=== PATIENT | female | born 1935 | race Caucasian/White ===

== ENCOUNTER 2022-09-04 06:06 | Day surgery (SDC) | payer MEDICARE ==
[2022-09-03 09:45] VITALS: BMI 21.7
[2022-09-04] MEDS ORDERED: PROPOFOL 0 ML ONE (06:50)
[2022-09-04] MEDS ORDERED: Lidocaine 1% PF 5 ML VIAL ONE (06:50)
[2022-09-04] MEDS ORDERED: PROPOFOL 20 ML ONE ×2 (08:06→08:37)
== END 2022-09-04 09:28 | disposition home or self-care (01) ==
LOC: CSHSDC 06:06
PROVIDERS: ATTEND Internal Medicine Gastroenterology
PROC: 0DB98ZX Excision of Duodenum, Via Natural or Artificial Opening Endoscopic, Diagnostic (ICD-10-PCS; principal; 2022-09-04)
PROC: 0DJD8ZZ Inspection of Lower Intestinal Tract, Via Natural or Artificial Opening Endoscopic (ICD-10-PCS; 2022-09-04)
DX: K31.7 Polyp of stomach and duodenum (principal); D50.9 Iron deficiency anemia, unspecified; K21.9 Gastro-esophageal reflux disease without esophagitis; K57.30 Diverticulosis of large intestine without perforation or abscess without bleeding; R19.5 Other fecal abnormalities; K59.00 Constipation, unspecified; I10 Essential (primary) hypertension; Z79.02 Long term (current) use of antithrombotics/antiplatelets; Z79.899 Other long term (current) drug therapy; Z88.8 Allergy status to other drugs, medicaments and biological substances; Z90.49 Acquired absence of other specified parts of digestive tract; Z95.820 Peripheral vascular angioplasty status with implants and grafts
CPT/HCPCS: 88305; J2704